=== PATIENT | female | born 1950 | race Caucasian/White ===

== ENCOUNTER 2021-01-21 18:19 | Emergency (ER) | payer MEDICARE, SELFPAY ==
[2021-01-21] VITALS (10 sets, daily range): BP systolic 112–135; BP diastolic 68–80; PULSE 80–90; RESP 17–21; TEMP 36.4–37.2; O2SAT 88–97; BMI 25.6
--- NOTE | 2021-01-21 20:39 | EKG12_ITS ---
Test Reason : SOB Blood Pressure : / mmHG Vent. Rate : 076 BPM Atrial Rate : 076 BPM P-R Int : 118 ms QRS Dur : 070 ms QT Int : 366 ms P-R-T Axes : 060 -21 021 degrees QTc Int : 411 ms Normal sinus rhythm Leftward axis Confirmed by PETRONA SALOMON, NATHAN ([id number]), video editor LULA CANDELARIA ([id number]) on 01/23/2021 8:45:38 AM Referred By: ELVIRA Confirmed By:NATHAN RUSS MD
--- NOTE | 2021-01-21 20:42 | ED.VIS.DYS ---
HPI History of Present Illness Chief Complaint: Shortness of Breath Informant: patient Onset/Context/Timing Onset: Weeks (2) Context: gradual and onset Timing: Continuous Quality: Positive for Dyspnea on exertion Current Severity: Mild Maximum Severity: Severe Worsened by: Exertion and Coughing Relieved by: Rest and Albuterol Associated Symptoms cough Chest Pain: Positive for None Narrative Narrative: Patient symptomatic for about 16 days with respiratory illness including fevers, loss of taste and smell, cough, dyspnea that has been worsening. She has seasonal allergies but no other medical problems. She is on no home oxygen. She went to [facility] ER this past week states they did a chest x-ray told her she had pneumonia and put her on an antibiotic --azithromycin --in addition to Decadron and another medication that she is unsure of (turned out to be Augmentin), and I sent her home with an oxygen concentrator and she has been using 3 L of oxygen by nasal cannula during the day which she has taken it off at night. She is watching her oxygen saturations at home with a portable pulse oximeter, she states she has been between 89 and 93 the majority of time. She is very resistant to being tested for Covid and states she would not let them do it at the other hospital, she was not vaccinated and I will not be vaccinated. [facility] Medical History (Updated 01/22/21 @ 01:[address] José Manuel Dawkins MD) Seasonal allergies Home Medications albuterol sulfate [Ventolin HFA] 1 - 2 puff INHALATION Q4H PRN PRN #1 inhaler 01/22/21 [Rx Last Taken Unknown] amoxicillin-pot clavulanate 1 tab TID 01/22/21 [History Last Taken Unknown] azithromycin 1 mg DAILY 01/22/21 [History Last Taken Unknown] dexamethasone 6 mg PO DAILY 01/22/21 [History Last Taken Unknown] Allergy/AdvReac Type Severity Reaction Status Date / Time tramadol AdvReac Other Verified 01/21/21 18:20 Social History Smoking Status: Never smoker [facility] ED Constitutional Constitutional ED: Reports chills, fatigue, fever(s) and malaise; Denies body ache(s) or headache(s) Eyes Eyes: Denies change in vision or diplopia ENT ENT ED: Denies rhinorrhea or sore throat Cardiovascular Cardiovascular: Reports chest pain; Denies palpitations Respiratory/Chest Respiratory/Chest: Reports cough, dyspnea and dyspnea on exertion Gastrointestinal Gastrointestinal: Denies abdominal pain, diarrhea, nausea or vomiting Genitourinary Genitourinary ED: Denies dysuria or hematuria Musculoskeletal Musculoskeletal: Denies back pain or neck pain Integumentary Denies abscess or rash Neurologic Neurologic: Denies headache(s), paresthesias or weakness Psychiatric Psychiatric: Denies anxiety or suicidal thoughts EXAM Physical Exam Const Vital Signs: 01/21/21 18:20 01/21/21 21:13 01/21/21 21:15 Temperature 97.6 F L 98.9 F Temperature Source Temporal Temporal Pulse Rate 89 80 88 Respiratory Rate 18 17 17 Respiratory Effort Blood Pressure 135/80 H 130/78 H Blood Pressure Mean 98 95 Pulse Ox 90 95 Oxygen Delivery Method Room Air Nasal Cannula Oxygen Flow Rate (L/min) 3 01/21/21 21:22 01/21/21 21:29 01/21/21 21:35 Temperature 98.8 F Temperature Source Oral Pulse Rate Respiratory Rate Respiratory Effort Short of Breath Blood Pressure Blood Pressure Mean Pulse Ox 88 Oxygen Delivery Method Nasal Cannula Nasal Cannula Oxygen Flow Rate (L/min) 3 3 01/21/21 21:36 01/21/21 22:08 01/21/21 23:30 Temperature 97.9 F 98.7 F Temperature Source Temporal Temporal Pulse Rate 89 90 Respiratory Rate 20 H 20 H Respiratory Effort Blood Pressure 121/68 H 112/75 Blood Pressure Mean 85 87 Pulse Ox 93 95 92 Oxygen Delivery Method Nasal Cannula Nasal Cannula Nasal Cannula Oxygen Flow Rate (L/min) 4 3 3 01/22/21 00:27 Temperature 97.7 F L Temperature Source Oral Pulse Rate 78 Respiratory Rate 25 H Respiratory Effort Blood Pressure 127/65 H Blood Pressure Mean 85 Pulse Ox 95 Oxygen Delivery Method Nasal Cannula Oxygen Flow Rate (L/min) 3 Positive well nourished and well developed Constitutional Narrative: malaised-appearing, no respiratory distress General Appearance ED: well developed and NAD HEENT Reports moist mucous membranes normocephalic and atraumatic Eyes PERRL and EOMs intact bilaterally Neck full ROM and supple Resp Resp Narrative: Mildly tachypneic. Few Rales at the left base. Equal breath sounds present bilaterally. Cardio regular rate, regular rhythm and no murmurs Rate: Negative for tachycardic GI non-tender and non-distended Auscultation: normoactive bowel sounds Palpation: soft Back/Spine no CVA tenderness General Back: other FROM Extremity normal to inspection and no calf tenderness General Extremety ED: Negative for edema, pulses abnormal or tenderness General Extremity: Negative for edema or pulses abnormal Neuro oriented x3, CN's II-XII intact bilaterally and no sensory deficits noted Sensorium / Orientation: awake and alert Motor Exam: strength 5/5 throughout Skin no rashes or lesions noted and no wounds MDM MDM MDM Narrative Medical decision making narrative: Patient has a leukocytosis and an x-ray indicating bilateral patchy pneumonia, so IV Zosyn and Zithromax were given, this was before the patient told me she was on Zithromax/an antibiotic. This was also before she told me she was on oxygen at home and it also been prescribed Decadron, I have not given her a dose of Decadron yet so I held off. She was given a duo nebulizer treatment, she was breathing much better after that. She did drop her sats down to 88% on room air and we put her on oxygen, at this time on 3 L she occasionally drops down to 89 but for a very short period of time and the majority of the time she is between 90-93%. She feels better and is breathing better and conversing in full sentences. PCR Covid was performed and returned positive. Since she has been symptomatic for 2 weeks or more, she does not meet criteria for remdesivir or other advanced treatments for moderate-severe disease. She does meet criteria for Decadron which apparently she is already on. She really wants to go home does not want to be admitted. Given all of this, I obtained CT angiography of the chest to rule out pulmonary embolus, it is negative. I feel the patient can go home to continue treatment and watching her pulse oximetry, and she is requesting a refill on her albuterol inhaler. I discussed with her if she remains hypoxic on 4 L of oxygen and requires more than that, she needs to return to the ER. Lab Data Attestation: I reviewed the patient's lab results. Labs: Laboratory Results - last 24 hr 01/21/21 01/21/21 01/21/21 20:55 21:05 21:05 WBC 14.2 H RBC 4.86 Hgb 14.0 Hct 42.1 MCV 86.6 MCH 28.8 MCHC 33.3 RDW Std Deviation 38.8 RDW Coeff of [place] 12.2 Plt Count 407 MPV 9.4 Immature Gran % (Auto) 3.900 H Neut % (Auto) 82.8 H Lymph % (Auto) 8.7 L [place] % (Auto) 4.1 Eos % (Auto) 0.0 Baso % (Auto) 0.5 Absolute Neuts (auto) 11.7 H Absolute Lymphs (auto) 1.23 Nucleated RBC % 0 D-Dimer Quant (PE/DVT) Sodium 133 L Potassium 3.9 Chloride 103 Carbon Dioxide 20.0 L Anion Gap 10 BUN 13 Creatinine 1.00 Estim Creat Clear Calc 41.99 Est GFR (MDRD) Af Amer 71 Est GFR (MDRD) Non-Af 58 L BUN/Creatinine Ratio 13.0 Glucose 226 H Lactic Acid Calcium 9.1 Total Bilirubin 0.60 AST 37 ALT 59 H Alkaline Phosphatase 71 Troponin I High Sens 16 Total Protein 8.3 H Albumin 2.7 L Globulin 5.6 H Albumin/Globulin Ratio 0.5 L Urine Color Urine Clarity Urine pH Ur Specific [place] Urine Protein Urine Glucose (UA) Urine Ketones Urine Occult Blood Urine Nitrite Urine Bilirubin Urine Urobilinogen Ur Leukocyte Esterase Urine RBC Urine WBC Ur Squamous Epith Cells Urine Bacteria Urine Mucus COVID-19 (BENI) Positive 01/21/21 01/21/21 01/21/21 21:05 21:05 21:25 WBC RBC Hgb Hct MCV MCH MCHC RDW Std Deviation RDW Coeff of [place] Plt Count MPV Immature Gran % (Auto) Neut % (Auto) Lymph % (Auto) [place] % (Auto) Eos % (Auto) Baso % (Auto) Absolute Neuts (auto) Absolute Lymphs (auto) Nucleated RBC % D-Dimer Quant (PE/DVT) 8.80 H* Sodium Potassium Chloride Carbon Dioxide Anion Gap BUN Creatinine Estim Creat Clear Calc Est GFR (MDRD) Af Amer Est GFR (MDRD) Non-Af BUN/Creatinine Ratio Glucose Lactic Acid 4.4 H* Calcium Total Bilirubin AST ALT Alkaline Phosphatase Troponin I High Sens Total Protein Albumin Globulin Albumin/Globulin Ratio Urine Color Yellow Urine Clarity Clear Urine pH 6.5 Ur Specific [place] 1.010 Urine Protein 15 H Urine Glucose (UA) 50 H Urine Ketones Negative Urine Occult Blood Negative Urine Nitrite Negative Urine Bilirubin Negative Urine Urobilinogen Normal Ur Leukocyte Esterase Negative Urine RBC 0 SEEN Urine WBC 0 SEEN Ur Squamous Epith Cells 0-5 SEEN Urine Bacteria 0 SEEN Urine Mucus 0 SEEN COVID-19 (BENI) Radiography Diagnostic Testing: Clinical Impression(s) from Imaging Studies Chest X-Ray 01/21/21 20:48 IMPRESSION: Subtle patchy bilateral airspace opacities may represent edema and/or infection. Electronically Signed: Logan Roberto MD at 21:39 EDT Tel , Service support , Chest CTA 01/22/21 23:40 IMPRESSION: 1. No pulmonary embolism. 2. Consolidative infiltrates throughout both lungs consistent with pneumonia. Consider COVID-19 pneumonia. Electronically Signed: Brad Owens MD at 1:30 EDT Tel , Service support , EKG Initial EKG: Attestation: I personally reviewed and interpreted this EKG as follows: Interpretation: Sinus Rhythm and No Acute Injury Pattern Comments: Normal EKG Discharge Plan Triage Chief Complaint: Shortness of Breath ED Provider: José Manuel Dawkins Dx/Rx/DC Orders Clinical Impression: Pneumonia due to COVID-19 virus, Hypoxemia Prescriptions: New albuterol sulfate [Ventolin HFA] 1 INHALER inhaler 1 - 2 puff inhalation Q4H PRN PRN (Reason: Wheezing) Qty: 1 RF: 0 No Action azithromycin 250 mg tablet 1 mg DAILY RF: 0 dexamethasone 2 mg tablet 6 mg PO DAILY RF: 0 amoxicillin-pot clavulanate 500-125 mg tablet 1 tab TID RF: 0 Primary Care Provider: Lalo Murphy Referrals: Lalo Murphy MD [Primary Care Provider] - 3-5 Days if not improving Disposition Disposition: Home, Self Care
--- NOTE | 2021-01-21 20:48 | RAD_ITS ---
INDICATION: sob cough EXAMINATION/TECHNIQUE: X-RAY - XR Chest 1 View COMPARISON: None. FINDINGS: Subtle patchy bilateral airspace opacities. Tortuous and calcified thoracic aorta. The heart is not enlarged. No pleural effusion or pneumothorax. No acute osseous abnormalities. RAD/Chest 1 View (Portable) IMPRESSION: Subtle patchy bilateral airspace opacities may represent edema and/or infection. Electronically Signed: Logan Roberto MD at 21:39 EDT Tel , Service support ,
[2021-01-21] MEDS: Ipratropium/Albuterol Sulfate 3 ML AMPUL.NEB INHALATION (20:51)
[2021-01-21] MEDS: 0.9% Normal Saline 1,000 ML 150 ML IV (21:12)
[2021-01-21 21:22] LABS: Absolute Lymphocyte Count 1.23 X10^3/uL (0.83-4.51); Absolute Neutrophil Count 11.7 X10^3/uL (2.0-7.7); Basophil# 0.07 X10^3/uL; Basophil% 0.5 % (0-1); Hematocrit 42.1 % (37-47); Lymphocyte # 1.23 X10^3/ul (0.83-4.51); Lymphocyte % 8.7 % (19-41); Mean Corp Hgb Conc 33.3 g/dL (32-36); Mean Corpuscular Hgb 28.8 pg (27.0-32.0); Mean Corpuscular Volume 86.6 fL (81-99); Mean Platelet Vol. 9.4 fl (6.2-12.0); Monocyte# 0.58 X10^3/uL; Monocyte% 4.1 % (0-10); NRBC Flagged by Analyzer 0 % (0-5); Neutrophil # 11.74 X10^3/uL (2.7-7.7); Neutrophil % 82.8 % (47-70); Platelet Count 407 K/mm3 (150-450); RBC Distribution Width CV 12.2 % (11.6-14.6); RBC Distribution Width SD 38.8 fl (35.1-43.9); Red Blood Count 4.86 M/mm3 (4.2-5.4); White Blood Count 14.2 K/mm3 (4.4-11.0)
[2021-01-21 21:35] LABS: Bacteria 0 SEEN /hpf (None Seen); Mucous, Urine 0 SEEN /hpf (<or=2+); Red Blood Cells-Urine 0 SEEN /hpf (0-5); White Blood Cells 0 SEEN /hpf (0-5)
[2021-01-21 21:41] LABS: Color, Urine Yellow (Yellow); Glucose, Dipstick 50 mg/dl (Normal); Ketone-Dipstick Negative (Negative); Leukocyte Esterase-Dipstick Negative /ul (Negative); Nitrite-Dipstick Negative (Negative); Occult Blood-Urine Negative /ul (Negative); Protein-Dipstick 15 mg/dl (Negative); Urine Bilirubin Dipstick Negative (Negative); Urine Clarity Clear (Clear); Urine Urobilinogen Normal (Normal); Urine pH 6.5 (5.0 - 8.0)
[2021-01-21 21:41] LABS: ALB/GLOB Ratio 0.5 RATIO (0.9-2.4); AST(SGOT) 37 U/L (15-37); Alanine Aminotransfer ALT/SGPT 59 U/L (13-56); Albumin, Serum 2.7 g/dL (3.2-5.0); Alkaline Phosphatase 71 U/L (45-117); Anion Gap 10 (5-15); BUN 13 mg/dL (7-18); Calcium,Total 9.1 mg/dL (8.5-10.1); Chloride 103 mmol/L (98-107); EST Glomerular Filtration Rate 58 mL/min (>60); Est Glom Filt Rate - Afr Amer 71 mL/min (>60); Estimated Creatinine Clearance 41.99 ml/min; Globulin 5.6 g/dL (2.2-4.2); Glucose 226 mg/dL (74-106); Potassium 3.9 mmol/L (3.5-5.1); Protein, Total 8.3 g/dL (6.4-8.2); Sodium Level 133 mmol/L (136-145); Troponin-I HS 16 pg/mL (3.0-54.0)
[2021-01-21 21:47] LABS: Squamous Epithelial Cells - UA 0-5 SEEN /hpf (5-10)
[2021-01-21 21:49] LABS: Lactic Acid 4.4 mmol/L (0.4-1.9)
[2021-01-21] MEDS: 0.9% Normal Saline 1,000 ML 999 ML IV (22:00)
--- NOTE | 2021-01-21 22:05 | NURSING ---
Waiting on atb
[2021-01-21 22:13] LABS: Probe Check PASS
[2021-01-22 00:27] VITALS: BP 127/65; PULSE 132; PULSE 78; RESP 19; RESP 25; TEMP 36.5; O2SAT 95
[2021-01-22 01:17] LABS: Reflex Lactate? Y
[2021-01-22 02:17] VITALS: BP 114/74; BP 118/70; PULSE 74; PULSE 80; RESP 16; RESP 19; TEMP 36.6; TEMP 36.8; O2SAT 94
--- NOTE | 2021-01-22 02:18 | ED.RN ---
tia, , daughter, called for ride home
[2021-01-22 02:49] LABS: Lactic Acid 3.9 mmol/L (0.4-1.9)
--- NOTE | 2021-01-22 23:40 | CT_ITS ---
EXAM: CT Angiography Chest Without and With Intravenous Contrast CLINICAL INDICATION: 70 years old, Female; covid, sob, d-dimer TECHNIQUE: Helically acquired angiography images were obtained of the chest without and with intravenous contrast. This CT exam was performed using one or more of the following dose reduction techniques: automated exposure control, adjustment of the mA and/or kV according to patient size, and/or use of iterative reconstruction technique. This report was created using [employer] report generation technology. MIP reconstructed images were created and reviewed. CONTRAST: IV 100mL [id number] COMPARISON: None. FINDINGS: Pulmonary arteries: Unremarkable. Normal in caliber. No pulmonary embolism. Aorta: Unremarkable. Normal in caliber. No evidence of dissection. Great vessels of aortic arch: Unremarkable. Normal in caliber. No evidence of dissection. Lungs and pleural spaces: Consolidative infiltrates throughout both lungs consistent with pneumonia. No mass. No pleural effusion or thickening. Heart: Unremarkable. Heart size is normal. No pericardial effusion. No signs of right heart strain, ratio of right ventricle to left ventricle measures less than 1. Mediastinum: Small hiatal hernia. No mediastinal or hilar adenopathy. Esophagus is unremarkable. Thyroid: Unremarkable. No thyroid lesions. Bones/joints: Unremarkable. No suspicious lytic or blastic abnormality. Soft tissues: Bilateral breast implants. CT/CTA Chest W/WO Contrast IMPRESSION: 1. No pulmonary embolism. 2. Consolidative infiltrates throughout both lungs consistent with pneumonia. Consider COVID-19 pneumonia. Electronically Signed: Brad Owens MD at 1:30 EDT Tel , Service support ,
== END 2021-01-22 02:58 | disposition home or self-care (01) ==
PROVIDERS: Emergency Provider Emergency Medicine; PCP Family Medicine
DX: U07.1 COVID-19 (principal); J12.82 Pneumonia due to coronavirus disease 2019; R09.02 Hypoxemia; Z79.52 Long term (current) use of systemic steroids; Z79.899 Other long term (current) drug therapy
CPT/HCPCS: 71045; 71275; 80053; 81001; 83605; 84484; 85025; 85379; 87040; 87086; 87635; 93005; 94640; 99285; J7030; Q9967; U0005; A4216; U0003

== ENCOUNTER → 2023-01-16 | Outpatient (CLI) | payer MEDICARE, MEDICAID, SELFPAY ==
--- NOTE | 2023-01-16 14:03 | US_ITS ---
INDICATION: BL knees -- rule out bakers cyst EXAMINATION: Right popliteal ultrasound. COMPARISON: No relevant prior comparison study available TECHNIQUE: Routine and color duplex imaging with spectral analysis. FINDINGS: Scanning of the right popliteal fossa shows a lobulated anechoic avascular fluid collection indicating a popliteal cyst, which measures 4.5 x 4.7 x 1.5 cm in diameter. This popliteal cyst lies in the area of the reported palpable lump. IMPRESSION: 4.7 cm diameter right popliteal cyst. Electronically Signed: Sim Brooks MD at 4:51 EDT , INDICATION: BL knees -- rule out bakers cyst EXAMINATION: Left popliteal ultrasound. COMPARISON: No relevant prior comparison study available TECHNIQUE: Routine and color duplex imaging with spectral analysis. FINDINGS: Scanning of the left popliteal fossa shows a lobulated avascular fluid collection, indicating a popliteal cyst which measures 3.2 x 2.6 x 1.5 cm in diameter. This cyst lies in the area of reported palpable lump. US/Ext Non Vasc Limited/Soft Tiss IMPRESSION: 3.2 cm left popliteal cyst. Electronically Signed: Sim Brooks MD at 4:53 EDT ,
== END | disposition home or self-care (01) ==
LOC: US 14:03
PROVIDERS: PCP Family Medicine; Referring Provider Orthopaedic Surgery Sports Medicine; Visit Provider Orthopaedic Surgery Sports Medicine
DX: M71.21 Synovial cyst of popliteal space [Baker], right knee (principal)
CPT/HCPCS: 76882

== ENCOUNTER 2023-02-23 09:10 | Outpatient (CLI) | payer MEDICARE, MEDICAID, SELFPAY ==
--- NOTE | 2023-02-23 09:14 | US_ITS ---
CLINICAL HISTORY: Female, 72 years old. Bilateral popliteal cysts. PROCEDURE: Catheter drainage. CONSENT: The procedure as well as the benefits and possible complications were explained to the patient. Informed consent was obtained. STERILE BARRIER TECHNIQUE: The following sterile barrier precautions were used during the procedure: hand hygiene; use of 2% chlorhexidine aseptic; use of a cap, mask, sterile gown, sterile gloves, sterile full body drape, and a large sterile sheet. TECHNIQUE: Under direct sonographic guidance, a 5 Hungarian catheter was placed into the collection. 11 cc of sy-colored fluid was aspirated. # of Images: 24 IMPRESSION: Successful drainage of the small right popliteal cyst. Electronically Signed: Mason Marlow MD at 12:32 EST , CLINICAL HISTORY: Female, 72 years old. Left popliteal cyst. PROCEDURE: Ultrasound-guided drainage. CONSENT: The procedure as well as the benefits and possible complications including infection and bleeding were explained to the patient. Informed consent was obtained. STERILE BARRIER TECHNIQUE: The following sterile barrier precautions were used during the procedure: hand hygiene; use of 2% chlorhexidine aseptic; use of a cap, mask, sterile gown, sterile gloves, sterile full body drape, and a large sterile sheet. TECHNIQUE: Under direct sonographic guidance, a 5 Hungarian catheter was placed into the collection. 2 cc of sy-colored fluid were aspirated. # of Images: 24 US/Cyst Puncture IMPRESSION: Successful drainage of the left popliteal cyst. Electronically Signed: Mason Marlow MD at 12:33 EST ,
== END 2023-02-23 23:59 | disposition home or self-care (01) ==
LOC: US 09:11
PROVIDERS: PCP Family Medicine; Referring Provider Orthopaedic Surgery Sports Medicine; Visit Provider Orthopaedic Surgery Sports Medicine
DX: M17.0 Bilateral primary osteoarthritis of knee (principal); M71.21 Synovial cyst of popliteal space [Baker], right knee; M71.22 Synovial cyst of popliteal space [Baker], left knee
CPT/HCPCS: 27345; 76942

== ENCOUNTER 2023-10-14 14:00 | Outpatient (RCR) | payer MEDICARE, MEDICAID, SELFPAY ==
--- NOTE | 2023-10-01 17:02 | HP.PTEVAL ---
Patient's Visit Information Visit Information Visit Information: DALIA MASSEY is a 72 year old F referred to Physical Therapy by Tre Phillips PA-C with a diagnosis of BILATERAL PRIMARY OSTEOARTHRITIS OF KNEE. Date of Evaluation: 10/01/23 Physical Therapist: Luis Pollard, PT, Cert MDT, OCS Visit Plan Frequency: 2-3x /Week Duration: 4-6 Weeks Plan: PT INTERVENTIONS AQUATIC THERAPY ROM ,FLEXABILITY ,STRENGTHENING EX'S QUADS/HAMS/HIP ,AND FUNCTIONAL STRENGTHENING Subjective Subjective: This 72 y/o female presents to physical therapy with bilateral knee pain due to progressive DJD. Patient has had progressive knee pain ~ [address] [place] . Patient had x-rays showed DJD. Patient was prescribed prednisone. Patient pain located global knee. Aggravating factors walking/standing extended affects ADLS and housework tasks. Patient has difficulty with steps and unable to squat /kneeling. Patient described as sharp pain. Patient sleeping okay. Patient needs TKA and wants to wait long as possible. Patient condition affects QOL and function /gait. Patient goals to to minimize pain avoid surgery. SOCIAL: single VOCATION: retired Pain Bilateral: Pain Intensity (Out of 10): 10 Pain Intensity Range: 10 Comment: left > right Objective Objective: POSTURE :mild forward posture bilateral knee varum PALAPTION: tender medial joint line > lateral NEURO: denies paresthesia/tingling FLEXABILITY: hamstrings WFL GAIT: reciprocal pattern mild decrease stance time MMT:( peak force) quads right 23.4 ,left 18.3,hamstrings right 17.6 ,left 16.2 ,hip flexion 4-/5 .ankle 5/5 AROM: left supine knee flexion 0-105 degrees ,right 0-110 degrees pain at ER STAIRS: one step at time with rails Special Tests R Knee Valgus - MCL: Negative R Knee Varus - LCL: Negative R Knee Patellar Apprehension - PFS: Negative L Knee Valgus - MCL: Negative L Knee Varus - LCL: Negative L Knee Patellar Apprehension - PFS: Negative Balance/Special Test Scores Lower Extremity Functional Score: 31 Goals Goal 1:: Patient to be I with HEP knees Goal Time Frame: 4-6 Weeks Goal 2:: Patient to improve AROM supine knee flexion by 5-10 degrees to improve stairs Goal Time Frame: 4-6 Weeks Goal 3:: Patient to improve peak force by 5-10 # strength to improve gait and function. Goal Time Frame: 4-6 Weeks Goal 4:: Patient to improve LFES score by 5 points to improve QOL and function Goal Time Frame: 4-6 Weeks Goal 5:: Patient to decrease pain 5/10 with walking and standing Goal Time Frame: 4-6 Weeks Goal 6:: Patient to demonstrate 50% improvement improved function and gait Goal Time Frame: 4-6 Weeks Rehabilitation Potential Physical Therapy Diagnosis: This patient has bilateral knee pain from DJD with pain ,decrease ROM ,decrease strength impairs walking and ADL's thus benefit from skilled PT Rehabilitation Potential: Good Anticipated Interventions Patient/Client Instruction: Educate patient on: Condition and Plan of Care For the Purpose of:: To decrease pain, To increase ROM, To increase oxygenation perfusion, To improve ability to perform ADL's, To increase tolerance to activity/condition/position, To improve ability of physical actions for home/community/work/leisure, To improve gait and locomotor functions, To improve health of tissue, To increase flexibility/ROM, To improve endurance and To improve balance Therapeutic Exercise to Include: Strength training, Endurance training, Balance training, Flexibilty training, Gait and locomotor training, In an aquatic setting, Passive ROM and Active ROM Comment: QUADS/HAMS/HIP For the Purpose of:: To decrease pain, To increase ROM, To improve muscle performance and motor function, To improve ability to perform ADL's, To increase tolerance to activity/condition/position, To improve ability of physical actions for home/community/work/leisure, To improve gait and locomotor functions, To improve health of tissue, To decrease soft tissue restriction, To increase flexibility/ROM and To improve tolerance to ADL's Text: Thank you for the opportunity to evaluate your patient. For Medicare and Medicare HMO plans, please review the plan of care and approve it. It will need to be FAXED BACK to us at [phone] for Medicare purposes. For Medicare only, by signing this I certify the plan of care. Please let me know if there are questions or concerns regarding this plan of care. Physician Signature: Date:
--- NOTE | 2023-11-05 18:24 | HP.PTDCNRP_ITS ---
Patient Information Patient Information: DALIA MSASEY was seen in my office for initial evaluation on 10/01/23. The following Plan of Care was established for this patient: POC Established Initial Frequency: 2-3x /Week Initial Duration: 4-6 Weeks Anticipated Interventions Patient/Client Instruction: Educate patient on: Condition and Plan of Care For the Purpose of:: To decrease pain, To increase ROM, To increase oxygenation perfusion, To improve ability to perform ADL's, To increase tolerance to activity/condition/position, To improve ability of physical actions for home/community/work/leisure, To improve gait and locomotor functions, To improve health of tissue, To increase flexibility/ROM, To improve endurance and To improve balance Therapeutic Exercise to Include: Strength training, Endurance training, Balance training, Flexibilty training, Gait and locomotor training, In an aquatic setting, Passive ROM and Active ROM For the Purpose of:: To decrease pain, To increase ROM, To improve muscle performance and motor function, To improve ability to perform ADL's, To increase tolerance to activity/condition/position, To improve ability of physical actions for home/community/work/leisure, To improve gait and locomotor functions, To improve health of tissue, To decrease soft tissue restriction, To increase flexibility/ROM and To improve tolerance to ADL's Last Seen Last Seen: This patient was last seen in our office . Pertinent comments regarding their Physical therapy will appear below: [facility] thus is d.c At this point I will be discontinuing this patient from physical therapy. I would be happy to see this patient again in the future if found appropriate by the physician. Thank you! Luis Pollard, PT, Cert MDT, OCS Balance/Gait/Functional tests Balance/Special Test Scores Lower Extremity Functional Score: 31
== END 2023-10-14 19:00 | disposition home or self-care (01) ==
LOC: PT 14:00
PROVIDERS: PCP Family Medicine; Referring Provider Physician Assistant; Visit Provider Physician Assistant
DX: M17.0 Bilateral primary osteoarthritis of knee (principal)
CPT/HCPCS: 97113; 97162

== ENCOUNTER 2023-12-26 18:25 | Emergency (ER) | payer MEDICARE, MEDICAID, SELFPAY ==
[2023-12-26 18:27] VITALS: BP 96/83; PULSE 65; RESP 18; TEMP 36.1; O2SAT 99; BMI 26.6
--- NOTE | 2023-12-26 18:28 | EDS_ITS ---
HPI HPI - Female History of Present Illness Chief Complaint: Complaint [facility] Medical History (Updated 12/26/23 @ 19:[address] Israel Torres, DO) Trigger finger, right middle finger Bilateral primary osteoarthritis of knee Left knee pain Right knee pain Hx of fracture of fibula Hx of fracture of femur Hx of fracture of patella Seasonal allergies Home Medications ?Medication ?Instructions ?Recorded ?Last Taken ?Type albuterol sulfate 90 mcg/actuation 1 - 2 puff inhalation Q4H PRN PRN 01/22/21 Unknown Rx aerosol inhaler (Ventolin HFA) Wheezing ##1 cetirizine 10 mg capsule (Zyrtec) 10 mg PO DAILY PRN 01/01/23 Unknown History fluconazole 150 mg tablet mg PO 01/01/23 Unknown History Euflexxa 10 mg/mL (mw 2.4-3.6 10 mg intra-articular ONCE #1 mL 01/30/23 Unknown Clinic million) intra-articular syringe (sodium hyaluronate (viscosup)) nitrofurantoin 100 mg PO Q12H 7 days #14 caps 12/26/23 Unknown Rx monohydrate/macrocrystals 100 mg capsule (Macrobid) Allergy/AdvReac Type Severity Reaction Status Date / Time tramadol AdvReac Other Verified 12/26/23 18:26 Social History Smoking Status: Never smoker EXAM Physical Exam Const Vital Signs: 12/26/23 18:27 12/26/23 18:29 Temperature 97 F L 98 F Temperature Source Temporal Oral Pulse Rate 65 65 Respiratory Rate 18 18 Blood Pressure 96/83 H 96/64 Blood Pressure Mean 87 74 Pulse Ox 99 97 Oxygen Delivery Method Room Air [place] [facility] [place] Medical decision making narrative: HISTORY OF PRESENT ILLNESS: 72-year-old female presents with concern for [] REVIEW OF SYSTEMS: Pertinent positives: [] Pertinent negatives: [] PHYSICAL EXAM: Nursing triage notes reviewed, Vital signs reviewed Constitutional: please see mdm HENT: MMM Eyes: Pupils equal round and reactive to light, Extraocular muscles intact Neck: No stridor, no JVD, full neck ROM Lungs: Clear to auscultation, No wheezing or rales. No increased work of breathing, no conversational dyspnea, no accessory muscle use, no nasal flaring. No respiratory distress noted Heart: Regular rate and rhythm, No murmurs, No rubs and No gallops, 2+ distal pulses (radial, femoral, posterior tibial) in all extremities Abdomen: Soft, there is no tenderness, rigidity, rebound or guarding, no obvious peritoneal signs, no palpable pulsatile abdominal masses, no auscultated abdominal bruit : No CVAT Extremities: No edema Neuro: No focal neurological deficits, cranial nerves II through XII intact, 5/5 strength in all extremities. Intact sensation to light touch in all extremities, 2+ reflexes bilateral patella tendons. Normal gait. No ataxia. Skin: No rash or lesions noted MEDICAL DECISION MAKING: Chief Complaint: Dysuria, concern for UTI External records reviewed: Urine culture Factors affecting care: Frequent UTIs MDM Narrative: Patient was hemodynamically stable, afebrile nontoxic-appearing. I considered the following differential diagnosis: UTI, pyelonephritis, nephrolithiasis Patient no flank pain concerns nephrolithiasis or pyelonephritis. She had no signs of sepsis with no tachycardia, fever or tachypnea Patient is now on a wait for urinalysis as she says they are always negative but did request antibiotics. I wrote her Macrobid and send her urine for culture. Informed about culture callback process The patient and/or family, caregivers express understanding. The patient and/or family, caregivers agrees with the plan. Shared decision making: I will have a discussion with the patient and or visitors regarding risk/benefits of further testing or admission. They will be made aware of of the risk/benefits inherent in this decision they will be given the opportunity to voice understanding. Total critical care time today provided was at least 0 minutes. This excludes separately billable procedures. Critical care time (if documented) is secondary to the patient having high probability of clinically significant/life threatening deterioration in the patient's condition which required my urgent intervention. Impression: 1. UTI 2. History of UTI Dispo: Discharge home This note was generated with Jovie dictation software. It may contain incorrect words, spelling, and punctuation that were not noted in review of the chart prior to signing. Discharge Plan Triage Chief Complaint: Complaint ED Provider: Israel Torres Dx/Rx/DC Orders Clinical Impression: Acute UTI Instructions: ED Cystitis Female Adult Prescriptions: New nitrofurantoin monohyd/m-cryst [Macrobid] 100 mg capsule 100 mg PO Q12H 7 Days Qty: 14 0RF Rx Instructions: must administer with a meal/food No Action fluconazole 150 mg tablet PO Patient Comments: take 1 tablet by mouth A ONE TIME DOSE Zyrtec 10 mg capsule 10 mg PO DAILY PRN Euflexxa 10 mg/mL(mw 2.4 -3.6 million) syringe 10 mg intra-articular ONCE Qty: 1 0RF albuterol sulfate [Ventolin HFA] 1 INHALER inhaler 1 - 2 puff inhalation Q4H PRN PRN (Reason: Wheezing) Qty: 1 0RF Primary Care Provider: Be Arguelles Referrals: Be Arguelles MD [Primary Care Provider] - Activity Restrictions/Additional Instructions: Thank you for trusting us with your care today! Please take antibiotics until course complete. Please take Tylenol (2 pills, 650 mg), ibuprofen (2 pills, 400 mg) every 6 hours as needed for pain and fever control. Please return to the emergency department if your symptoms change or worsen. Please follow with your primary care physician for further outpatient evaluation and management. Print Language: Fijian Disposition Disposition: Home, Self Care
[2023-12-26 18:29] VITALS: BP 96/64; PULSE 65; RESP 18; TEMP 36.6; O2SAT 97
[2023-12-26] MEDS: Nitrofurantoin Macrocrystals 100 MG Capsule PO (19:10)
[2023-12-26 19:23] LABS: Mucous, Urine 0 SEEN /hpf (<or=2+)
[2023-12-26 19:27] LABS: Color, Urine Yellow (Yellow); Glucose, Dipstick Normal (Normal); Ketone-Dipstick Negative (Negative); Leukocyte Esterase-Dipstick Negative /ul (Negative); Nitrite-Dipstick Negative (Negative); Occult Blood-Urine 10 /ul (Negative); Protein-Dipstick Negative (Negative); Specific Gravity, Urine 1.025 (1.002-1.030); Urine Bilirubin Dipstick Negative (Negative); Urine Clarity Clear (Clear); Urine Urobilinogen Normal (Normal)
[2023-12-26 20:02] LABS: Bacteria 1+ /hpf (None Seen); Squamous Epithelial Cells - UA 5-10 SEEN /hpf (5-10)
[2023-12-26 20:03] LABS: Red Blood Cells-Urine 0-5 SEEN /hpf (0-5); White Blood Cells 0-5 SEEN /hpf (0-5)
== END 2023-12-26 19:15 | disposition home or self-care (01) ==
PROVIDERS: Emergency Provider Emergency Medicine; PCP Family Medicine; Visit Provider Emergency Medicine
DX: N39.0 Urinary tract infection, site not specified (principal); Z87.440 Personal history of urinary (tract) infections
CPT/HCPCS: 81001; 99282; A4216

== ENCOUNTER 2024-01-04 16:00 | Outpatient (RCR) | payer MEDICARE, MEDICAID, SELFPAY | END 2024-01-04 19:00 | disposition home or self-care (01) | LOC: PT 16:00 | PROVIDERS: PCP Family Medicine; Referring Provider Specialist; Visit Provider Specialist | DX: M21.161 Varus deformity, not elsewhere classified, right knee (principal); M21.162 Varus deformity, not elsewhere classified, left knee; M17.0 Bilateral primary osteoarthritis of knee | CPT/HCPCS: 97113; 97162 ==